=== PATIENT | female | born 1960 | race Caucasian/White ===

== ENCOUNTER → 2017-03-09 | Outpatient (CLI) | payer OTHER ==
[~2017-03-09] MED LIST: ALBUTEROL17 GM INH; ANEXSIA 7.5/3251 TA1 PO; ASPIRIN EC81 M1 PO; ASPIRIN PO; ASPIRIN81 M1 PO; B-12250 MCG PO; BACTRIM DS TABL1 TA1 PO; BENADRYL PO; CALCIUM + D 6001 TA1 PO; CALCIUM CARBON600 M1 PO; CALCIUM500 MG PO; CARDIZEM60 M1 PO; CIPRO PO; COREG PO; COUMADIN PO; COUMADIN10 MG PO; DILTIAZEM ER60 MG PO; DILTIAZEM ER90 MG PO; ECOTRIN81 M1 PO; EPIPEN0.3 MG/0.3 INJ; FAMOTIDINE PO; FISH OIL 1,0001 CAP PO; FISH OIL300 MG PO; FLEXERIL10 MG PO; FLOMAX0.4 M1 PO; FOLBIC TABLET1 TA1 PO; GLUCOPHAGE500 M1 PO; IBUPROFEN PO; KLONOPIN PO; KLONOPIN0.5 MG PO; KLONOPIN1 MG PO; LASIX20 MG PO; LEVAQUIN PO; LIPITOR PO; LIPITOR20 MG DOB; LOPID600 MG PO; METOPROLOL ER; MIRALAX17 GM PO; MONTELUKAST SOD10 MG PO; NEURONTIN300 MG PO; NIASPAN1000 M2 PO; NORCO1 TAB 10/3 PO; PREDNISONE PO; PRILOSEC2.5 MG; PRILOSEC40 MG PO; PYRIDIUM PO; SERTRALINE HCL50 MG PO; SIMVASTATIN40 MG PO; STAHIST TA1 TAB.SR . PO; TOPROL XL; TRENTAL400 MG PO; TRILIPIX135 MG PO; TYLENOL #3 PO; VISTARIL PO; VITAMIN D50000 UNIT PO; ZOCOR PO; ZOFRAN ODT4 MG/UDTAB PO; ZYRTEC PO; ZYRTEC10 M2 PO
--- NOTE | ~2017-03-09 | US128 ---
[id number] [address] [address] [id number] MR#: [id number] Acc #: [id number] NAME: CELSA LYLES : 1960 SEX: F STUDY DATE/TIME: 03/09/2017 13:15 UNIT: [facility] ROOM: STUDY DESCRIPTION: Thyroid Attending Physician: Bennie Quintero M.D. Referring Physician: Bennie Quintero M.D. Ordering Physician: Bennie Quintero M.D. Primary Care Physician: Shira Barclay M.D. MEDICAL IMAGING REPORT This report is preliminary unless electronic signature is present. EXAM Thyroid ultrasound 03/09/2017 CLINICAL HISTORY Followup thyroid nodule. No new symptoms. COMPARISON Prior thyroid ultrasound 10/17/2013 FINDINGS There are small subcentimeter nodules bilaterally. There is a dominant nodule at the right lower pole mostly solid with a few scattered calcifications measuring 1.9 x 1.4 x 2.2 cm. On the prior study it measured 1.9 x 2.2 x 2.7 cm. IMPRESSION In addition to some tiny subcentimeter nodules of doubtful significance there is a right lower pole complex solid nodule stable to even slightly smaller when compared to the ultrasound of October 17, 2013. No new abnormality is seen. Dictated by... Shiv Barreto M.D. THIS IS AN ELECTRONICALLY VERIFIED REPORT Shiv Barreto M.D. at 03/12/2017 4:08 PM TEV/edie TD: 03/09/2017 19:48 JOB #: [id number] MEDICAL IMAGING REPORT Page 1 of 1
== END | disposition home or self-care (01) ==
LOC: SGUS 07:27
DX: E04.1 Nontoxic single thyroid nodule (principal)
CPT/HCPCS: 76536

== ENCOUNTER → 2017-03-12 | Outpatient (CLI) | payer OTHER ==
--- NOTE | ~2017-03-12 | TH ---
Unit #: [id number] #: [id number] Patient: CELSA LYLES [id number] [address] [address] [id number] O MR#: [id number] NAME: CELSA LYLES : 1960 SEX: F STUDY DATE/TIME: 03/12/2017 UNIT: [facility] ROOM: STUDY DESCRIPTION: Lexiscan stress test - nuclear Attending Physician: Nori Mcqueen M.D. Referring Physician: Nori Mcqueen M.D. Primary Care Physician: Shira Barclay M.D. CARDIOLOGY REPORT PROCEDURE PERFORMED Lexiscan Cardiolite stress test - Nuclear portion. PROCEDURE Using technetium 99m-labeled Cardiolite, rest and stress SPECT images were obtained. Multiple SPECT images were obtained in various views, including horizontal and vertical long axis and short axis views of the left ventricle. Images were obtained by gated SPECT method. The patient was administered 10.86 mCi of Cardiolite at rest. The patient was administered 32.3 mCi of Cardiolite after Lexiscan infusion was completed. On the stress images, there is a small area of mildly decreased tracer uptake activity in the anteroapical wall. The rest images shown normal perfusion. Comparing the rest and stress images, a very small area of stress-induced ischemia involving the anteroapical wall of the left ventricle cannot be ruled out. The left ventricular ejection fraction is calculated to be 68%. There is no focal wall motion abnormality seen. CONCLUSION 1. A small area of possible stress-induced ischemia involving the anteroapical wall of the left ventricle cannot be ruled out. 2. The left ventricular ejection fraction is calculated to be 68%. 3. There is no focal wall motion abnormality seen. 4. Mildly abnormal Lexiscan Cardiolite stress test. Technically limited study. Clinical correlation is requested. Dictated by... Will Corona/omer TD: 03/12/2017 14:50 JOB #: [id number] Unit #: [id number] #: [id number] Patient: CELSA LYLES [facility] CARDIOLOGY REPORT Page 1 of 1 X Nori Mcqueen MD <ELECTRONICALLY SIGNED> 04/01/17 [facility] CARDIOLOGY REPORT
--- NOTE | ~2017-03-12 | ST ---
Unit #: [id number] #: [id number] Patient: CELSA LYLES [id number] [address] [place], [place] [address] [id number] O MR#: [id number] NAME: CELSA LYLES : 1960 SEX: F STUDY DATE/TIME: 03/12/2017 UNIT: [facility] ROOM: STUDY DESCRIPTION: Lexiscan stress test Attending Physician: Nori Mcqueen M.D. Referring Physician: Nori Mcqueen M.D. Primary Care Physician: Shira Barclay M.D. CARDIOLOGY REPORT PROCEDURE PERFORMED Lexiscan Cardiolite stress test. REPORT Baseline EKG - Normal sinus rhythm with ventricular rate 75 beats per minute, left atrial abnormality, questionable Q wave in V1, slow R wave progression. Lexiscan is a 4-minute test with Lexiscan being injected within the first minute, followed by Cardiolite. FINDINGS 1. EKG during the test was equivocal to baseline. No acute ischemic changes. 2. Patient had no complaints of chest pain, palpitations or dizziness. Had increased shortness of breath and fatigue, which resolved in recovery phase. 3. Maximum heart rate response was 118 beats per minute with a maximum blood pressure response 152/86 mmHg. 4. Cardiolite was injected after Lexiscan within the first minute of the test. Radionuclide tests pending. Please correlate with nuclear images. Dictated by... Melania De Anda A.P.R.N. for Will Corona/omer TD: 03/12/2017 12:39 JOB #: [id number] CARDIOLOGY REPORT Page 1 of 1 X Melania De Anda APRN CARDIOLOGY REPORT
== END | disposition home or self-care (01) ==
LOC: CNUC 09:00
DX: I48.91 Unspecified atrial fibrillation (principal); R07.9 Chest pain, unspecified; E78.00 Pure hypercholesterolemia, unspecified; I10 Essential (primary) hypertension; E11.9 Type 2 diabetes mellitus without complications; R94.39 Abnormal result of other cardiovascular function study
CPT/HCPCS: 78452; 93017; A9500; J2785